=== PATIENT | female | born 1985 | race Hispanic/Latino ===

== ENCOUNTER 2025-05-26 20:18 | Emergency (ER) | payer OTHER, SELFPAY ==
--- OUTSIDE RECORDS SUMMARY | 2025-05-26 20:21 | XMS REPORT | Continuity of Care Document ---
Author Name Unknown Address [address] [facility] [address] [place] [address] [facility] Address [address] [facility] [address] [place] [address] Care Team Providers Care Mobile Sales Consultant Name Role Phone JESSE Attending Clinician Unavailable JESSE Admitting Clinician Unavailable Problems Condition Name Condition Details Condition Category Status Onset Date Resolution Date Last Treatment Date Treating Clinician Comments Source Gestationa l diabetes mellitus Gestationa l Diabetes Mellitus Problem Active 12-20 00:00: 00 [facility] Abnormal glucose tolerance test during - baby not yet delivered Abnormal Glucose Tolerance Test During - Baby Not Yet Delivered Problem Active 12-13 00:00: 00 [facility] Persistent microscopi c hematuria Persistent Microscopi c Hematuria Problem Active 10-19 00:00: 00 [facility] Heartburn Heartburn Problem Active 10-19 00:00: 00 [facility] Subchorion ic hematoma Subchorion ic Hematoma Problem Active 2016-10 00:00: 00 [facility] Routine care Routine Care Problem Active 2016-10 00:00: 00 [facility] Acute cystitis in , antepartum Acute Cystitis in , Antepartum Problem Active 2016-10 00:00: 00 [facility] Acute cervicitis Acute Cervicitis Problem Active 2016-10 00:00: 00 [facility] Mild hyperemesi s gravidarum Mild Hyperemesi s Gravidarum Problem Active 2016-10 00:00: 00 [facility] Iron deficiency anemia of Iron Deficiency Anemia of Problem Active 11-29 00:00: 00 [facility] Gastroesop hageal reflux disease Gastroesop hageal Reflux Disease Problem Active 2014-10 00:00: 00 [facility] Genitourin quyen tract infection in - not delivered Genitourin quyen Tract Infection in - Not Delivered Problem Active 2014-10 0 00:00: 00 [facility] Acute sinusitis Acute [facility]usitis [facility] Mild hyperemesi s-not delivered Mild Hyperemesi s-not Delivered Problem Active [facility] screening Screening Problem Active [facility] Social History Smoking Status Start Date Stop Date Source Never Smoker [facility] Medications Ordered Medication Name Filled Medication Name Start Date Stop Date Current Medication? Ordering Clinician Indication Dosage Frequency Signature (SIG) Comments Components Source cefuroxime axetil 500 mg tablet Take 1 tablet twice a day by oral route for 5 days. cefuroxime axetil 500 mg tablet Take 1 tablet twice a day by oral route for 5 days. No 1 BID cefuroxime axetil 500 mg tablet Take 1 tablet twice a day by oral route for 5 days. [facility] Tylenol-Cod eine #3 300 mg-30 mg tablet 1-2 p.o. q 6 hours PRN pain Tylenol-Cod eine #3 300 mg-30 mg tablet 1-2 p.o. q 6 hours PRN pain No Tylenol-Co deine #3 300 mg-30 mg tablet 1-2 p.o. q 6 hours PRN pain [facility] Vital Signs Vital Name Observation Time Observation Value Comments S ource BP Diastolic 2019-07-07 00:00:00 77 mm[Hg] [facility] Height 2019-07-07 00:00:00 64 [in_i] [facility] BMI (Body Mass Index) 2019-07-07 00:00:00 23.3 kg/m2 [facility] BP Systolic 2019-07-07 00:00:00 123 mm[Hg] [facility] Body Weight 2019-07-07 00:00:00 136 [lb_av] [facility] Encounters Start Date/Time End Date/Time Encounter Type Admission Type Attending Clinicians Care Facility Care Department Encounter ID Source 2019-07-07 00:00:00 2019-07-07 00:00:00 Aly Garcia MD: [address] [place] [address] [address], [place] [address] , Ph. [phone] [address] [facility] Db BRYANT [id number] [facility]
[2025-05-26] MEDS ORDERED: KETOROLAC 30 MG/ML INJ ONE (20:51)
--- NOTE | 2025-05-26 21:27 | RAD REPORT ---
EXAM: XR RIGHT HAND HISTORY: Pain. PAIN COMPARISON: None TECHNIQUE: Multiple projections of the right hand submitted. FINDINGS: No evidence of acute fracture or dislocation. Joint alignment is maintained. No soft tissu e swelling is seen.. No significant degenerative changes are present. IMPRESSION: No significant bone or joint abnormality.
--- NOTE | 2025-05-26 21:36 | EDPHYS ---
Physician Documentation [facility] Name: Sheryl Montalvo Age: 39 yrs Sex: Female : 1985 Arrival Date: 05/26/2025 Time: 20:18 Bed 15 Private MD: ED Physician Gera Valenzuela HPI: 05/26 21:42 This 39 yrs old Female presents to ER via Ambulatory with complaints of Hand kb Injury, Hand Pain. 21:42 Patient is a 39-year-old female who presents for right hand pain that radiates up her kb right arm. States the pain started a couple of days ago but does not recall an injury. 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 States she lifted a resident yesterday and felt a pop in the same area that she has been having pain so she came in today for evaluation.. 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 - Infectious Disease History:: Denies. - Social history:: Smoking status: Patient denies any tobacco usage or history of. Patient uses alcohol, occasionally. Patient/guardian denies using street drugs. ROS: 21:41 Constitutional: As per HPI kb Exam: 21:41 Constitutional: This is a well developed, well nourished patient who is awake, alert, kb and in no acute distress. Head/Face: Normocephalic, atraumatic. ENT: Moist Mucous membranes Respiratory: Respirations even and unlabored. No increased work of breathing. Talking in full sentences Skin: Warm, dry with normal turgor. Normal color. Neuro: Awake and alert, GCS 15, oriented to person, place, time, and situation. 21:41 Musculoskeletal/extremity: Extremities: grossly normal except: noted in the lateral aspect of right hand: pain, tenderness, ROM: intact in all extremities, Circulation is intact in all extremities. Sensation intact. Vital Signs: 20:32 BP 122 / 92; Pulse 77; Resp 15 S; Temp 98.1(O); Pulse Ox 100% on R/A; Weight 63.5 kg lg3 (R); Height 5 ft. 2 in. (R); Pain 4/10; 21:26 BP 123 / 83; Pulse 72; Resp 16 S; Pulse Ox 100% on R/A; lg3 20:32 Body Mass Index 25.61 (63.50 kg, 157.48 cm) lg3 20:32 Pain Scale: Adult lg3 MDM: 20:23 Medical Screening Exam initiated kb 21:43 Differential diagnosis: dislocation, closed fracture, contusion, tendonitis. Data kb reviewed: vital signs, nurses notes. Counseling: I had a detailed discussion with the patient and/or guardian regarding the historical points, exam findings, and any diagnostic results supporting the discharge/admit diagnosis, radiology results, the need for outpatient follow up, a orthopedic surgeon, to return to the emergency department if symptoms worsen or persist or if there are any questions or concerns that arise at home. 05/26 20:31 Order name: Hand Right 3 View XRAY; Complete Time: 21:28 kb 05/26 21:35 Order name: Mike Wrap; Complete Time: 21:44 kb Administered Medications: 20:54 Drug: Ketorolac IM 30 mg IM once Route: IM; Site: left deltoid; lg3 21:44 Follow up: Response: No adverse reaction; Marked relief of symptoms lg3 Disposition: 05/27 18:29 Co-signature as Attending Physician, Gera Valenzuela MD I agree with the assessment sp4 and plan of care. I reviewed the patient's care provided by the Advanced Practice Provider and agree with the diagnosis and treatment plan. Disposition Summary: 05/26/25 21:36 Discharge Ordered Notes: Location: Home kb Condition: Stable kb Diagnosis - Pain in right hand kb Followup: kb - With: Emergency Department - When: As needed - Reason: Worsening of condition Followup: kb - With: Private Physician - When: 2 - 3 days - Reason: Recheck today's complaints, Continuance of care, Re-evaluation by your physician Discharge Instructions: - Discharge Summary Sheet kb - Musculoskeletal Pain kb Forms: - Medication Reconciliation Form kb - Antibiotic Education kb - Prescription Opioid Use kb - Patient Portal Instructions kb - Leadership Thank You Letter kb - Work release form bd Prescriptions: - Diclofenac Sodium 75 mg Oral tablet, delayed release (enteric coated) - take 1 tablet ORAL route 2 times per day As needed; 30 tablet; Refills: 0, kb Product Selection Permitted Signatures: Dispatcher [employer] Arianne Galvin FNP-C FNP-Ckb Able, Lacie RN RN lg3 Gera Valenzuela MD MD sp4
--- NOTE | 2025-05-26 21:36 | ER ---
Nurse's Notes [facility] Name: Sheryl Montalvo Age: 39 yrs Sex: Female : 1985 Arrival Date: 05/26/2025 Time: 20:18 Bed 15 Private MD: Diagnosis: Pain in right hand Presentation: 05/26 20:32 Chief complaint: Patient states: pain to right hand X3 days. denies injury. heard pop lg3 yesterday. no relief with tylenol. Coronavirus screen: Client denies travel out of the [place] in the last 14 days. At this time, the client does not indicate any symptoms associated with coronavirus-19. Ebola Screen: No symptoms or risks identified at this time. Initial Sepsis Screen: Does the patient meet any 2 criteria? No. Patient's initial sepsis screen is negative. Does the patient have a suspected source of infection? No. Patient's initial sepsis screen is negative. Risk Assessment: Do you want to hurt yourself or someone else? Patient reports no desire to harm self or others. Onset of symptoms was May 25, 2025. 20:32 Method Of Arrival: Ambulatory lg3 20:32 Acuity: ISMAEL 4 lg3 Triage Assessment: 20:44 General: Appears in no apparent distress. comfortable, Behavior is calm, cooperative, lg3 appropriate for age. Pain: Complains of pain in right hand Pain does not radiate. Pain currently is 4 out of 10 on a pain scale. EENT: No deficits noted. No signs and/or symptoms were reported regarding the EENT system. Neuro: No deficits noted. Psarks Agitation-Sedation Scale (RASS): 0 - Alert and Calm Level of Consciousness is awake, alert, obeys commands, Oriented to person, place, time, situation. Cardiovascular: No deficits noted. Denies chest pain, shortness of breath, Capillary refill < 3 seconds Clubbing of nail beds is absent JVD is absent Patient's skin is warm and dry. Respiratory: No deficits noted. Airway is patent Respiratory effort is even, unlabored, Respiratory pattern is regular, symmetrical. GI: No deficits noted. No signs and/or symptoms were reported involving the gastrointestinal system. : No signs and/or symptoms were reported regarding the genitourinary system. Derm: No deficits noted. No signs and/or symptoms reported regarding the dermatologic system. Skin is intact, is healthy with good turgor, Skin is dry, Skin is normal, Skin temperature is warm. Musculoskeletal: Circulation, motion, and sensation intact. Range of motion: intact in all extremities, Reports pain in palmar aspect of proximal phalanx of right thumb and Right first web space. Injury Description: none. 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 - Infectious Disease History:: Denies. - Social history:: Smoking status: Patient denies any tobacco usage or history of. Patient uses alcohol, occasionally. Patient/guardian denies using street drugs. Screenin:47 [facility] ED Fall Risk Assessment (Adult) History of falling in the last 3 months, lg3 including since admission No falls in past 3 months (0 pts) Confusion or Disorientation No (0 pts) Intoxicated or Sedated No (0 pts) Impaired Gait No (0 pts) Mobility Assist Device Used No (0 pt) Altered Elimination No (0 pt) Score/Fall Risk Level 0 - 2 = Low Risk Oriented to surroundings, Maintained a safe environment, Educated pt \T\ family on fall prevention, incl call for assistance when getting out of bed, Assessed \T\ reinforced patient's understanding of fall precautions. Abuse screen: Denies threats or abuse. Denies injuries from another. Nutritional screening: No deficits noted. Tuberculosis screening: No symptoms or risk factors identified. Assessment: 20:47 General: see triage assessment. lg3 21:26 Reassessment: Patient appears in no apparent distress at this time. No changes from lg3 previously documented assessment. Patient and/or family updated on plan of care and expected duration. Pain level reassessed. Patient is alert, oriented x 3, equal unlabored respirations, skin warm/dry/pink. Vital Signs: 20:32 BP 122 / 92; Pulse 77; Resp 15 S; Temp 98.1(O); Pulse Ox 100% on R/A; Weight 63.5 kg lg3 (R); Height 5 ft. 2 in. (R); Pain 4/10; 21:26 BP 123 / 83; Pulse 72; Resp 16 S; Pulse Ox 100% on R/A; lg3 20:32 Body Mass Index 25.61 (63.50 kg, 157.48 cm) lg3 20:32 Pain Scale: Adult lg3 ED Course: 20:22 Patient arrived in ED. gm2 20:22 Arianne Colon FNP-C is [facility]. kb 20:23 Gera Valenzuela MD is Attending Physician. kb 20:41 Norma Lord, RN is Primary Nurse. lg3 20:44 Triage completed. lg3 20:44 Arm band placed on right wrist. lg3 20:47 Patient has correct armband on for positive identification. Placed in gown. Bed in low lg3 position. Call light in reach. Side rails up X 1. Client placed on continuous cardiac and pulse oximetry monitoring. NIBP monitoring applied. Door closed. Noise minimized. Warm blanket given. Pillow given. Family accompanied patient. 21:23 Hand Right 3 View XRAY In Process Unspecified. EDMS 21:44 Provided Education on: discharge instructions . lg3 21:44 No provider procedures requiring assistance completed. Patient did not have IV access lg3 during this emergency room visit. Mike wrap to right hand. Administered Medications: 20:54 Drug: Ketorolac IM 30 mg IM once Route: IM; Site: left deltoid; lg3 21:44 Follow up: Response: No adverse reaction; Marked relief of symptoms lg3 Medication: 20:47 VIS not applicable for this client. lg3 Outcome: 21:36 Discharge ordered by . kb 21:44 Discharged to home ambulatory, with family, lg3 21:44 Condition: stable 21:44 Discharge instructions given to patient, Instructed on discharge instructions, follow up and referral plans. medication usage, Demonstrated understanding of instructions, follow-up care, medications, Prescriptions given X 1, 21:45 Patient left the ED. lg3 Signatures: Dispatcher [employer] EDMS Arianne Colon FNP-C FNP-Ckb Able, Lacie, MORRIS RN lg3 [place] gm2
[2025-05-27 02:09] VITALS: TEMP 98.1; O2SAT 100
[2025-05-27 02:11] VITALS: BP 123/83
== END 2025-05-26 21:45 | disposition home or self-care (01) ==
LOC: ER 20:18
DX: M79.641 Pain in right hand (principal)